=== PATIENT | female | born 2000 | race American Indian/Alaskan Native ===

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

== ENCOUNTER 2021-10-07 11:20 | Inpatient (IN) | payer MEDICAID ==
[2021-10-07] MEDS ORDERED: Oxytocin 10 Units/1 ML SDV IM PRN (12:34)
[2021-10-07] MEDS ORDERED: Tranexamic Acid 1,000 MG in Sodium Chloride 0.9% 100 ML IV PRN ×2 (12:34→18:49)
[2021-10-07] MEDS ORDERED: Carboprost Tromethamine 250 MCG/1 ML Amp IM PRN ×2 (12:34→18:49)
[2021-10-07] MEDS ORDERED: Methylergonovine 0.2 MG Tab PO PRN (12:34)
[2021-10-07] MEDS ORDERED: Lactated Ringers 1,000 ML IV SCH ×2 (12:45→19:00)
[2021-10-07] MEDS ORDERED: Oxytocin/Normal Saline 30 UNIT/500 ML BAG IV SCH (12:45)
[2021-10-07] MEDS: Lactated Ringers 1,000 ML IV SCH ×2 (14:00→16:00)
[2021-10-07] MEDS ORDERED: Oxytocin/Normal Saline 30 UNIT/500 ML BAG IV ONE (14:34)
[2021-10-07] MEDS ORDERED: Citric Acid/Sodium Citrate Solution 30 ML Cup PO ONE (16:00)
[2021-10-07] MEDS ORDERED: Gentamicin 600 MG in Sodium Chloride 0.9% 100 ML IV ONE (16:00)
[2021-10-07] MEDS ORDERED: Ketorolac 30 MG/ML SDV IVPUSH ONE (17:30)
[2021-10-07] MEDS ORDERED: Morphine PF 10 MG/10 ML SDV ONE (17:30)
[2021-10-07] MEDS ORDERED: Ondansetron 4 MG/2 ML SDV IV ONE (17:30)
[2021-10-07] MEDS ORDERED: Lactated Ringers 1,000 ML IV ONE (17:30)
[2021-10-07] MEDS ORDERED: Dexamethasone 4 MG/ML SDV IV ONE (17:30)
[2021-10-07] MEDS ORDERED: Methylergonovine 0.2 MG/1 ML Amp IM PRN (18:49)
[2021-10-07] MEDS ORDERED: Misoprostol 400 MCG (4 X 100 MCG TAB) RECTAL PRN (18:49)
[2021-10-07] MEDS ORDERED: Acetaminophen 325 MG Tab PO PRN (18:49)
[2021-10-07] MEDS ORDERED: ePHEDrine 50 MG/ML SDV IVPUSH PRN (18:49)
[2021-10-07] MEDS ORDERED: Acetaminophen/oxyCODONE 325-5 MG Tab PO PRN (18:49)
[2021-10-07] MEDS ORDERED: Ondansetron 4 MG/2 ML SDV IVPUSH PRN (18:49)
[2021-10-07] MEDS ORDERED: diphenhydrAMINE 50 MG/ML SDV IVPUSH PRN (18:49)
[2021-10-07] MEDS ORDERED: Ibuprofen 800 MG Tab PO PRN (18:49)
[2021-10-07] MEDS ORDERED: Naloxone 2 MG/2 ML Syringe IVPUSH PRN (18:49)
[2021-10-07] MEDS ORDERED: Ketorolac 30 MG/ML SDV IVPUSH SCH (19:00)
[2021-10-07] MEDS: Sodium Chloride 0.9% 10 ML Syringe FLUSH SCH (22:18)
[2021-10-07] MEDS: Simethicone 80 MG Tab.Chew PO SCH (22:19)
[2021-10-08] MEDS: Ketorolac 30 MG/ML SDV IVPUSH SCH ×3 (00:15→11:48)
[2021-10-08] MEDS: Simethicone 80 MG Tab.Chew PO SCH ×5 (08:41→21:02)
[2021-10-08] MEDS: Docusate Sodium 100 MG Cap PO PRN ×2 (08:43→21:02)
[2021-10-08] MEDS: Prenatal Multivitamin with Calcium/Folic Acid/Iron Tab PO SCH (08:43)
[2021-10-08] MEDS: metroNIDAZOLE 250 MG Tab PO SCH ×2 (08:44→21:02)
[2021-10-08] MEDS: Ferrous Sulfate 325 MG Tab PO SCH (08:44)
[2021-10-08] MEDS: Acetaminophen/oxyCODONE 325-5 MG Tab PO PRN ×3 (08:44→21:03)
[2021-10-08] MEDS ORDERED: Lactated Ringers 1,000 ML IV ONE (09:39)
[2021-10-08] MEDS: Sodium Chloride 0.9% 10 ML Syringe FLUSH SCH ×2 (10:13→11:49)
[2021-10-08] MEDS: Ibuprofen 800 MG Tab PO PRN (21:02)
[2021-10-09] MEDS: Acetaminophen/oxyCODONE 325-5 MG Tab PO PRN ×3 (06:15→21:44)
[2021-10-09] MEDS: Ibuprofen 800 MG Tab PO PRN ×2 (06:16→17:06)
[2021-10-09] MEDS: Simethicone 80 MG Tab.Chew PO SCH ×4 (09:09→21:44)
[2021-10-09] MEDS: Ferrous Sulfate 325 MG Tab PO SCH (09:09)
[2021-10-09] MEDS: Prenatal Multivitamin with Calcium/Folic Acid/Iron Tab PO SCH (09:09)
[2021-10-09] MEDS: metroNIDAZOLE 250 MG Tab PO SCH ×2 (09:09→21:44)
[2021-10-09] MEDS: Docusate Sodium 100 MG Cap PO PRN (21:44)
[2021-10-10] MEDS: Ibuprofen 800 MG Tab PO PRN (08:29)
[2021-10-10] MEDS: Acetaminophen/oxyCODONE 325-5 MG Tab PO PRN (08:30)
[2021-10-10] MEDS: Simethicone 80 MG Tab.Chew PO SCH ×2 (08:32→13:00)
[2021-10-10] MEDS: Prenatal Multivitamin with Calcium/Folic Acid/Iron Tab PO SCH (08:32)
[2021-10-10] MEDS: Ferrous Sulfate 325 MG Tab PO SCH (08:32)
[2021-10-10] MEDS: metroNIDAZOLE 250 MG Tab PO SCH (11:00)
== END 2021-10-10 18:45 | disposition home or self-care (01) | DRG 788 ==
LOC: DL.ED 11:20 → DL.OBCHECK 11:20 → EDSTATUS 12:02 → DL.OB 12:44 → OBSVTOIN 17:45
PROVIDERS: ADMIT Family Medicine; ATTEND Family Medicine
PROC: 10D00Z1 Extraction of Products of Conception, Low, Open Approach (ICD-10-PCS; principal; 2021-10-07)
PROC: 4A1HXCZ Monitoring of Products of Conception, Cardiac Rate, External Approach (ICD-10-PCS; 2021-10-07)
DX: O13.4 Gestational [pregnancy-induced] hypertension without significant proteinuria, complicating childbirth (principal); O24.420 Gestational diabetes mellitus in childbirth, diet controlled; Z37.0 Single live birth; O99.214 Obesity complicating childbirth; E66.01 Morbid (severe) obesity due to excess calories; O32.1XX0 Maternal care for breech presentation, not applicable or unspecified; O75.3 Other infection during labor; B96.89 Other specified bacterial agents as the cause of diseases classified elsewhere; Z3A.37 37 weeks gestation of pregnancy; O99.02 Anemia complicating childbirth; D50.0 Iron deficiency anemia secondary to blood loss (chronic)
CPT/HCPCS: 01961; 36415; 59025; 76815; 81003; 82565; 82570; 82947; 83615; 84156; 84450; 84460; 84520; 84550; 85027; 86850; 86900; 86901; A9270-GY; J1100; J1580; J1885; J2270; J2405; J2590; J3490; J7120

== ENCOUNTER 2021-10-19 12:52 | Emergency (ER) | payer MEDICAID ==
[2021-10-19 14:09] LABS: ANION GAP 17.1 mEq/L (7-13); CHLORIDE,CL 105 mmol/L (98-107); SODIUM,NA 142 mmol/L (136-145)
== END 2021-10-19 15:45 | disposition home or self-care (01) ==
LOC: DL.ED 12:52
DX: R20.0 Anesthesia of skin (principal); Z88.0 Allergy status to penicillin
CPT/HCPCS: 36415; 80053; 81001; 83735; 84100; 85025; 86140; 99283; 99284

== ENCOUNTER 2023-03-16 16:38 | Emergency (ER) | payer MEDICAID ==
[2023-03-16] MEDS ORDERED: Sodium Chloride 0.9% 1,000 ML IV ONE (16:50)
[2023-03-16] MEDS: Sodium Chloride 0.9% 10 ML Syringe FLUSH PRN ×4 (17:01→21:25)
[2023-03-16 17:03] LABS: BASOPHILS PERCENT AUTO 0.5 % (0.0-1.0); EOSINOPHILS PERCENT AUTO 1.4 % (1.0-3.0); HEMATOCRIT 38.6 % (37.0-47.0); HEMOGLOBIN 12.4 g/dL (12.0-16.0); LYMPHOCYTES PERCENT AUTO 20.8 % (20.5-50.1); MEAN CORPUSCULAR HEMOGLOBIN 25.8 pg (27.0-34.0); MEAN CORPUSCULAR HGB CONC 32.1 g/dL (33.0-35.0); MEAN CORPUSCULAR VOLUME 80.4 fL (80-100); NEUTROPHILS PERCENT AUTO 70.3 % (42.2-75.2); PLATELET COUNT,PLT 306 10^3/uL (150-450); WHITE BLOOD CELL COUNT,WBC 6.5 10^3/uL (5.0-10.0)
[2023-03-16] MEDS ORDERED: Ondansetron 8 MG in Sodium Chloride 0.9% 50 ML IV ONE (17:04)
[2023-03-16 17:14] LABS: BILIRUBIN,URINE MODERATE (NEGATIVE); COLOR,URINE DARK YELLOW (YELLOW); GLUCOSE,URINE NEGATIVE (NEGATIVE); KETONES,URINE TRACE (NEGATIVE); LEUKOCYTE ESTERASE,URINE TRACE (NEGATIVE); NITRITE,URINE NEGATIVE (NEGATIVE); OCCULT BLOOD,URINE LARGE (NEGATIVE); PROTEIN,URINE 30 (NEGATIVE)
[2023-03-16 17:15] LABS: APPEARANCE,URINE SLIGHTLY CLOUDY (CLEAR)
[2023-03-16 17:18] LABS: HCG QUALITATIVE,SERUM NEGATIVE (NEGATIVE)
[2023-03-16 17:19] LABS: ALANINE AMINOTRANSFERASE,ALT 667 U/L (14-59); ALBUMIN 3.9 g/dL (3.4-5.0); ALKALINE PHOSPHATASE 196 U/L (46-116); ANION GAP 10.7 mEq/L (7-13); ASPARTATE AMNIOTRANSFERASE,AST 802 U/L (15-37); BLOOD UREA NITROGEN,BUN 10 mg/dL (7-18); CALCIUM 8.5 mg/dL (8.5-10.1); CARBON DIOXIDE,CO2 30 mmol/L (21-32); CHLORIDE,CL 105 mmol/L (98-107); CREATININE 0.83 mg/dL (0.55-1.02); EST CRCL DRUG DOSING (CG) 103.39 mL/min; GLUCOSE RANDOM 77 mg/dL (70-99); LIPASE 72 U/L (73-393); POTASSIUM,K 3.7 mmol/L (3.5-5.1); PROTEIN TOTAL,TP 7.8 g/dL (6.4-8.2); SODIUM,NA 142 mmol/L (136-145)
[2023-03-16 17:49] LABS: BACTERIA,URINE FEW /HPF (0-FEW/HPF); EPITHELIAL CELLS,URINE FEW /HPF (NOT SEEN); MUCUS,URINE OCCASIONAL /LPF (NOT SEEN); WBC,URINE 0-5 /HPF (0-5/HPF)
[2023-03-16 18:01] LABS: ESTIMATED GFR 102 mL/min (>=60)
[2023-03-16] MEDS ORDERED: Iopamidol 612 MG/ML 100 ML Bottle IVPUSH ONE (18:29)
[2023-03-16] MEDS ORDERED: HYDROmorphone 0.5 MG/0.5 ML Syringe IVPUSH ONE ×2 (20:04→21:19)
[2023-03-16] MEDS ORDERED: Ondansetron 4 MG/2 ML SDV IVPUSH ONE (20:04)
[2023-03-16] MEDS ORDERED: Naloxone 2 MG/2 ML Syringe IVPUSH PRN (21:19)
== END 2023-03-16 22:05 ==
LOC: DL.ED 16:38
DX: K81.9 Cholecystitis, unspecified (principal); E11.9 Type 2 diabetes mellitus without complications; Z88.0 Allergy status to penicillin
CPT/HCPCS: 36415; 71045; 74177; 80053; 81001; 83690; 84703; 85025; 96361; 96365; 96375; 96376; 99285; J1170; J2405; J3490; J7030; Q9967; 99284

== ENCOUNTER 2023-08-05 13:00 | Emergency (ER) | payer MEDICAID | END 2023-08-05 15:40 | disposition home or self-care (01) | LOC: DL.ED 13:00 | DX: O99.892 Other specified diseases and conditions complicating childbirth (principal); R10.2 Pelvic and perineal pain; Z88.0 Allergy status to penicillin; Z3A.17 17 weeks gestation of pregnancy | CPT/HCPCS: 99283 ==

== ENCOUNTER 2023-12-11 16:55 | Inpatient (IN) | payer MEDICAID ==
[2023-12-11] MEDS: Lactated Ringers 1,000 ML IV SCH (17:45)
[2023-12-11] MEDS ORDERED: Oxytocin 10 Units/1 ML SDV IM PRN (18:05)
[2023-12-11] MEDS ORDERED: Tranexamic Acid 1,000 MG in Sodium Chloride 0.9% 100 ML IV PRN ×2 (18:05→20:08)
[2023-12-11] MEDS ORDERED: Methylergonovine 0.2 MG Tab PO PRN (18:05)
[2023-12-11] MEDS ORDERED: Carboprost Tromethamine 250 MCG/1 ML Amp IM PRN ×2 (18:05→20:08)
[2023-12-11] MEDS ORDERED: Sodium Chloride 0.9% 10 ML Syringe FLUSH PRN (18:05)
[2023-12-11] MEDS ORDERED: Lactated Ringers 1,000 ML IV SCH (18:15)
[2023-12-11 18:16] LABS: HEMATOCRIT 36.5 % (37.0-47.0); HEMOGLOBIN 11.7 g/dL (12.0-16.0); MEAN CORPUSCULAR HEMOGLOBIN 26.6 pg (27.0-34.0); MEAN CORPUSCULAR HGB CONC 32.1 g/dL (33.0-35.0); PLATELET COUNT,PLT 182 10^3/uL (150-450); WHITE BLOOD CELL COUNT,WBC 7.9 10^3/uL (5.0-10.0)
[2023-12-11 18:17] LABS: LYMPHOCYTES PERCENT AUTO 21.9 % (20.5-50.1); MONOCYTES PERCENT AUTO 4.8 % (2-8); NEUTROPHILS PERCENT AUTO 71.9 % (42.2-75.2)
[2023-12-11 18:18] LABS: BASOPHILS PERCENT AUTO 0.4 % (0.0-1.0)
[2023-12-11] MEDS ORDERED: Oxytocin/Normal Saline 30 UNIT/500 ML BAG ONE (18:41)
[2023-12-11 20:01] LABS: APPEARANCE,URINE CLEAR (CLEAR); BILIRUBIN,URINE NEGATIVE (NEGATIVE); COLOR,URINE YELLOW (YELLOW); GLUCOSE,URINE NEGATIVE (NEGATIVE); KETONES,URINE NEGATIVE (NEGATIVE); LEUKOCYTE ESTERASE,URINE NEGATIVE (NEGATIVE); NITRITE,URINE NEGATIVE (NEGATIVE); OCCULT BLOOD,URINE NEGATIVE (NEGATIVE); PH,URINE 6.5 (5.0-9.0); PROTEIN,URINE 100 (NEGATIVE); UROBILINOGEN,URINE 0.2 mg/dL (0.2-1.0)
[2023-12-11] MEDS: Oxytocin/Normal Saline 30 UNIT/500 ML BAG IV SCH (20:01)
[2023-12-11 20:06] LABS: CREATININE,URINE RAND 63.73 mg/dL (No establ ref range); PROTEIN CREATININE RATIO,URINE 980.7 mg/g (<150.0); PROTEIN,URINE RANDOM 62.5 mg/dL (0.0-11.9)
[2023-12-11 20:06] LABS: CREATININE 0.78 mg/dL (0.55-1.02); EST CRCL DRUG DOSING (CG) 105.01 mL/min
[2023-12-11] MEDS ORDERED: Misoprostol 400 MCG (4 X 100 MCG TAB) RECTAL PRN (20:08)
[2023-12-11] MEDS ORDERED: diphenhydrAMINE 50 MG/ML SDV IVPUSH PRN (20:08)
[2023-12-11] MEDS ORDERED: ePHEDrine 50 MG/ML SDV IVPUSH PRN (20:08)
[2023-12-11] MEDS ORDERED: Naloxone 2 MG/2 ML Syringe IVPUSH PRN (20:08)
[2023-12-11 20:20] LABS: BAND PERCENT MAN 2 %; EOSINOPHILS PERCENT MAN 1 % (1-3); LYMPHOCYTES PERCENT MAN 21 % (20-50); MONOCYTES PERCENT MAN 4 % (2-8); SEG NEUTROPHILS PERCENT MAN 72 % (42-75)
[2023-12-11 20:39] LABS: HEMOGLOBIN A1C 6.2 % (<5.7)
[2023-12-11] MEDS: Ondansetron 4 MG/2 ML SDV IVPUSH PRN (22:00)
[2023-12-11] MEDS: ceFAZolin 2 GM Vial IVPUSH ONE (23:07)
[2023-12-11] MEDS: Simethicone 80 MG Tab.Chew PO SCH (23:07)
[2023-12-11] MEDS: Sodium Chloride 0.9% 10 ML Syringe FLUSH SCH (23:07)
[2023-12-11] MEDS: Citric Acid/Sodium Citrate Solution 30 ML Cup PO ONE (23:07)
[2023-12-12] MEDS: Lactated Ringers 1,000 ML IV SCH (05:23)
[2023-12-12 06:37] LABS: HEMATOCRIT 32.8 % (37.0-47.0); HEMOGLOBIN 10.6 g/dL (12.0-16.0); MEAN CORPUSCULAR HGB CONC 32.3 g/dL (33.0-35.0); MEAN CORPUSCULAR VOLUME 83.5 fL (80-100); RED BLOOD CELL COUNT 3.93 10^6/uL (4.2-5.4); WHITE BLOOD CELL COUNT,WBC 12.8 10^3/uL (5.0-10.0)
[2023-12-12] MEDS: Ferrous Sulfate 325 MG Tab PO SCH (08:59)
[2023-12-12] MEDS: Prenatal Multivitamin with Calcium/Folic Acid/Iron Tab PO SCH (08:59)
[2023-12-12] MEDS: Acetaminophen 325 MG Tab PO PRN (12:38)
[2023-12-12] MEDS: Ibuprofen 800 MG Tab PO PRN (12:41)
[2023-12-12] MEDS: Acetaminophen/oxyCODONE 325-5 MG Tab PO PRN (16:45)
[2023-12-12] MEDS: Docusate Sodium 100 MG Cap PO PRN (21:47)
[2023-12-13] MEDS: Acetaminophen/oxyCODONE 325-5 MG Tab PO PRN (04:28)
== END 2023-12-14 12:05 | disposition home or self-care (01) | DRG 788 ==
LOC: DL.OBCHECK 16:55 → DL.OB 18:05 → OBSVTOIN 19:11
PROVIDERS: ADMIT Family Medicine; ATTEND Family Medicine
PROC: 10D00Z1 Extraction of Products of Conception, Low, Open Approach (ICD-10-PCS; principal; 2023-12-11 18:00)
DX: O34.211 Maternal care for low transverse scar from previous cesarean delivery (principal); O99.214 Obesity complicating childbirth; Z3A.36 36 weeks gestation of pregnancy; Z37.0 Single live birth; O24.429 Gestational diabetes mellitus in childbirth, unspecified control; O14.94 Unspecified pre-eclampsia, complicating childbirth; Z86.16 Personal history of COVID-19
CPT/HCPCS: 36415; 81003; 82565; 82570; 82947; 83036; 84112; 84156; 84450; 84460; 84520; 85025; 85027; 86850; 86900; 86901; A9270-GY; J2405; J2590; J7120

== ENCOUNTER 2024-09-02 23:55 | Emergency (ER) | payer MEDICAID ==
[2024-09-03] MEDS: Take Home: Sulfamethoxazole/Trimethoprim 800-160 MG Tab, 6 Tab Pack PO ONE (01:38)
[2024-09-03] MEDS: Mupirocin Oint 22 GM Tube TOP ONE (01:39)
== END 2024-09-03 01:51 | disposition home or self-care (01) ==
LOC: DL.ED 23:55
DX: L03.115 Cellulitis of right lower limb (principal); Z88.0 Allergy status to penicillin; Z79.899 Other long term (current) drug therapy
CPT/HCPCS: 82947; 87070; 87077; 99283; 99284; A9270